=== PATIENT | female | born 1990 | race Caucasian/White ===

== ENCOUNTER → 2016-12-05 | Outpatient (CLI) | payer OTHER | LOC: FIMAGING 13:33 | PROVIDERS: ATTEND Nurse Practitioner | DX: N60.01 Solitary cyst of right breast (principal); N60.02 Solitary cyst of left breast; Z85.3 Personal history of malignant neoplasm of breast; Z90.13 Acquired absence of bilateral breasts and nipples ==

== ENCOUNTER 2017-03-07 01:48 | Emergency (ER) | payer OTHER ==
--- NOTE | 2017-03-07 02:07 | EDPHY ---
H & P Time Seen by Provider: 03/07/17 01:56 HPI/ROS: Chief Complaint: Chest pain HPI: 26-year-old woman past medical history breast cancer in the past now in remission woke 45 minutes ago with central chest pain radiating to her back. It is worse lying down. Does hurt a bit to breathe. At worst pain is an 8/10. When at a 610. Does not have a history of the same. No shortness of breath. Patient was treated for breast cancer in January of 2015. She had a bilateral mastectomy. Is currently on tamoxifen. No recent travel. No leg pain or swelling. No nausea or vomiting. No family history of blood clots in the past. She does not smoke. She is not on hormone replacement. ROS: 10 point Review of Systems is negative except as noted in the HPI. PMH: Breast cancer in 2014 Medications: Tamoxifen, Effexor, vitamin-D Allergies: No known drug allergies Social History: No smoking, occasional alcohol, no recreational drug use Family History: Breast cancer, hypertension, diabetes Physical Exam: Gen: Awake, Alert, No Distress HEENT: Nose: no rhinorrhea Eyes: PERRLA, EOMI Mouth: Moist mucosa Neck: Supple, no JVD Chest: She has mild parasternal tenderness reproducing presenting complaint, lungs clear to auscultation Heart: S1, S2 normal, no murmur Abd: Soft, non-tender, no guarding Back: no CVA tenderness, no midline tenderness Ext: no edema, non-tender Skin: no rash Neuro: CN II-XII intact, Sensation grossly intact, Strength 5/5 in bilateral upper and lower extremities Constitutional: Initial Vital Signs Temperature (C) 36.6 C 03/07/17 01:55 Heart Rate 87 03/07/17 01:55 Respiratory Rate 18 03/07/17 01:55 Blood Pressure 118/74 03/07/17 01:55 O2 Sat (%) 98 03/07/17 01:55 O2 Delivery Mode Room Air Allergies/Adverse Reactions: No Known Allergies Allergy (Unverified 03/07/17 01:54) Home Medications: Medication Instructions Recorded Effexor 03/07/17 Tamoxifen Citrate 03/07/17 Medical Decision Making - Diagnostics EKG Interpretation: ECG time 4:02 a.m. sinus rhythm with a rate of 69, normal axis, normal intervals , no acute ST or T-wave changes. Impression: Normal ECG ED Course/Re-evaluation: 26-year-old boy history of breast cancer now in remission with chest pain. ECG is normal. Chest x-ray is negative. D-dimer is normal. Troponin is undetectable. Patient has some relief with a GI cocktail pain return. No significant relief with Protonix. She does have some mildly reproducible pain at the this is likely chest wall in nature. Patient's pain is down to a 4/10 after Toradol. Chest some nausea. Will give Zofran for this. She has no risk factors for heart disease or PE. Her D-dimer is negative. No evidence of active cancer at this time. Will discharge with follow-up with primary care physician - Data Points Laboratory Results: Laboratory Results 03/07/17 02:35 03/07/17 02:35 03/07/17 03/07/17 03/07/17 02:35 02:35 02:35 WBC 9.99 10^3/uL H 10^3/uL (3.80-9.50) RBC 4.16 10^6/uL L 10^6/uL (4.18-5.33) Hgb 12.5 g/dL L g/dL (12.6-16.3) Hct 36.8 % L % (38.0-47.0) MCV 88.5 fL fL (81.5-99.8) MCH 30.0 pg pg (27.9-34.1) MCHC 34.0 g/dL g/dL (32.4-36.7) RDW 12.0 % % (11.5-15.2) Plt Count 309 10^3/uL 10^3/uL (150-400) MPV 9.8 fL fL (8.7-11.7) Neut % (Auto) 56.2 % % (39.3-74.2) Lymph % (Auto) 34.2 % % (15.0-45.0) Bowie % (Auto) 6.8 % % (4.5-13.0) Eos % (Auto) 1.9 % % (0.6-7.6) Baso % (Auto) 0.4 % % (0.3-1.7) Nucleat RBC Rel Count 0.0 % % (0.0-0.2) Absolute Neuts (auto) 5.61 10^3/uL 10^3/uL (1.70-6.50) Absolute Lymphs (auto) 3.42 10^3/uL H 10^3/uL (1.00-3.00) Absolute Monos (auto) 0.68 10^3/uL 10^3/uL (0.30-0.80) Absolute Eos (auto) 0.19 10^3/uL 10^3/uL (0.03-0.40) Absolute Basos (auto) 0.04 10^3/uL 10^3/uL (0.02-0.10) Absolute Nucleated RBC 0.00 10^3/uL 10^3/uL (0-0.01) Immature Gran % 0.5 % % (0.0-1.1) Immature Gran # 0.05 10^3/uL 10^3/uL (0.00-0.10) D-Dimer 0.33 ug/mLFEU ug/mLFEU (0.00-0.50) Sodium 138 mEq/L mEq/L (134-144) Potassium 4.0 mEq/L mEq/L (3.5-5.2) Chloride 103 mEq/L mEq/L (97-110) Carbon Dioxide 22 mEq/l mEq/l (22-31) Anion Gap 13 mEq/L mEq/L (8-16) BUN 12 mg/dL mg/dL (7-23) Creatinine 0.6 mg/dL mg/dL (0.6-1.0) Estimated GFR > 60 Glucose 94 mg/dL mg/dL (70-100) Calcium 9.6 mg/dL mg/dL (8.5-10.4) Troponin I < 0.012 ng/mL ng/mL (0-0.034) Lipase 210.0 IU/L IU/L (23-300) Medications Given: Discontinued Medications Al Hydroxide/Mg Hydroxide (Maalox Susp) 30 ml PO ONCE ONE Stop: 03/07/17 02:09 Last Admin: 03/07/17 02:29 Dose: 30 ml Ketorolac Tromethamine (Toradol) 15 mg IVP EDNOW ONE Stop: 03/07/17 05:13 Last Admin: 03/07/17 05:15 Dose: 15 mg Lidocaine (Lidocaine 2% Viscous) 15 ml PO ONCE ONE Stop: 03/07/17 02:09 Last Admin: 03/07/17 02:29 Dose: 15 ml Morphine Sulfate (Morphine) 4 mg IVP ONCE ONE Stop: 03/07/17 04:01 Last Admin: 03/07/17 04:07 Dose: 4 mg Pantoprazole Sodium (Protonix) 40 mg IVP EDNOW ONE Stop: 03/07/17 04:05 Last Admin: 03/07/17 04:07 Dose: 40 mg Departure - Departure Disposition: Home, Routine, Self-Care Clinical Impression: Chest pain Condition: Good Instructions: Hydrocodone/Acetaminophen (By mouth), Ondansetron (By mouth), Chest Pain (ED) Additional Instructions: Return to the emergency depart for increasing chest pain, shortness of breath, fevers, chills, productive cough, or any other concerns. Follow up with primary care physician in 2-3 days for re-evaluation. Referrals: Eri Al MD [Medical Doctor] - As per Instructions
[2017-03-07] MEDS ORDERED: MAG HYDROX/AL HYDROX/SIMETH 30 ML UDCUP PO ONE (02:08)
[2017-03-07] MEDS ORDERED: LIDOCAINE 2% VISCOUS 15 ML UDCUP PO ONE (02:08)
[2017-03-07 02:44] LABS: % IMMATURE GRANULYOCYTES 0.5 % (0.0-1.1); ABSOLUTE IMMATURE GRANULOCYTES 0.05 10^3/uL (0.00-0.10); ADD DIFF? NO; ADD MORPH? NO; ADD SCAN? NO; ATYPICAL LYMPHOCYTE FLAG 0 (0-99); FRAGMENT RBC FLAG 0 (0-99); HEMATOCRIT 36.8 % (38.0-47.0); HEMOGLOBIN 12.5 g/dL (12.6-16.3); LEFT SHIFT FLG 0 (0-99); LIPEMIA HEMOLYSIS FLAG 90 (0-99); MEAN CELL VOLUME 88.5 fL (81.5-99.8); MEAN PLATELET VOLUME 9.8 fL (8.7-11.7); PLATELET CLUMPS FLAG 0 (0-99); PLATELET COUNT 309 10^3/uL (150-400); RED BLOOD CELL COUNT 4.16 10^6/uL (4.18-5.33)
[2017-03-07 02:53] LABS: ANION GAP 13 mEq/L (8-16); CALCIUM 9.6 mg/dL (8.5-10.4); CARBON DIOXIDE 22 mEq/l (22-31); CHLORIDE 103 mEq/L (97-110); CREATININE 0.6 mg/dL (0.6-1.0); GLOMERULAR FILTRATION RATE > 60; GLUCOSE 94 mg/dL (70-100); SODIUM 138 mEq/L (134-144)
[2017-03-07 03:04] LABS: TROPONIN I < 0.012 ng/mL (0-0.034)
[2017-03-07] MEDS ORDERED: PANTOPRAZOLE SODIUM 40 MG in NS 100 ML IV ONE (03:59)
[2017-03-07] MEDS ORDERED: PANTOPRAZOLE SODIUM 40 MG VIAL IVP ONE (04:04)
[2017-03-07 04:37] VITALS: O2SAT 96
--- NOTE | 2017-03-07 04:46 | CPEKG ---
Heart Rate: 69 RR Interval: 870 P-R Interval: 164 QRSD Interval: 96 QT Interval: 396 QTC Interval: 425 P Tijer[place]: 45 QRS [place]ijer[place]: 13 T Wave [place]: 26 EKG Severity - NORMAL ECG - EKG Impression: SINUS RHYTHM Electronically Signed By: Festus Vickers 07-Mar-2017 07:06:44
[2017-03-07] MEDS ORDERED: KETOROLAC 15 MG/1 ML SDV IVP ONE (05:12)
[2017-03-07] MEDS ORDERED: ONDANSETRON 4 MG/2 ML VIAL IVP ONE (05:59)
[2017-03-07] MEDS ORDERED: HYDROCOD/APAP 5/325 PREPACK#6 BTL TAKEHOME ONE (06:17)
[2017-03-07] MEDS ORDERED: ONDANSETRON 4MG PREPACK#2 BTL TAKEHOME ONE (06:17)
[2017-03-07 06:41] VITALS: BP 119/81; PULSE 74; RESP 16; TEMP 97.9
== END 2017-03-07 06:41 | disposition home or self-care (01) ==
DX: R07.9 Chest pain, unspecified (principal); Z85.3 Personal history of malignant neoplasm of breast
CPT/HCPCS: 96374; J1885; J2405

== ENCOUNTER 2018-11-02 20:27 | Emergency (ER) | payer OTHER ==
--- NOTE | 2018-11-02 20:48 | EDPHY ---
General Time Seen by Provider: 11/02/18 20:48 Narrative: CLINICAL IMPRESSION: Large Right complex ovarian cyst ASSESSMENT/PLAN: Patient is a 28 year old female who presents who presents with complaint of pelvic pain, sent for evaluation of possible IUD displacement status post endometrial biopsy. Patient is afebrile and nontoxic appearing, she is in no acute distress. Her abdomen is soft, no peritoneal signs on initial or re- examination; tender in the very low generalized abdomen R>L. Her vital signs were reviewed, no findings to suggest sepsis or serious bacterial illness. CBC , BMP, UA grossly normal. negative, rules out ectopic. Pelvic US with 8x5x6.2 cm right adnexal cyst with no associated vascularity. US otherwise with no solid adnexal masses, no significant intraperitoneal fluid and normal blood flow to both ovaries. No evidence of IUD malposition. I suspect her pain is related to size of cyst. There was no evidence of torsion or ectopic. She just had her annual exam with negative STI workup, no findings to suggest TOA or PID. She was given toradol with improvement of her symptoms. On repeat exam she is well appearing, her abdomen is soft with mild RLQ tenderness to palpation. I have a very low suspicion for other etiologies to include appendicitis, ischemic bowel, bowel perforation, UTI or any other life threatening disease. I have discussed with the patient the possibility of CT scanning to evaluate for other potential causes of the abdominal pain, but the patient currently refuses and opts for an out patient trial and re-evaluation. She is well established with her ObGyn and will call tomorrow to schedule an appointment for repeat examination. She understands that a repeat US is recommended 6-8 weeks. Conservative return precautions discussed- she will return for worsening or localizing pain, fever, N/V, vaginal bleeding or for any other concerning symptom. Patient verbalizes understanding and she is in agreement with the plan. DIFFERENTIAL DX: Pelvic pain differential includes but not limited to and in no particular order , ovarian cyst/rupture, TOA, PID, UTI, pyelo, endometriosis, IUD malposition, appendicitis, mass/malignancy ED COURSE: 225: Discussed case with Dr. Archuleta, patient found to have large complex cyst on the right ovary. 225: On repeat examination the patient reports that she is feeling better. I discussed her results with her. Her abdomen was soft with generalized lower abdominal tenderness however most tender in the right lower quadrant. There is no rebound or guarding, no peritoneal signs. I discussed with the patient that her symptoms are likely secondary to her ovarian cyst however could not rule out acute appendicitis with 100% certainty without CT. Patient refuses CT at this time, she will return if symptoms change. CHIEF COMPLAINT: Pelvic Pain HPI: Patient is a 28-year-old female with a significant history of stage II breast cancer status post bilateral mastectomy 2016 presents to the emergency department with pelvic pain. Patient reports she had a uterine biopsy performed last by Shazia Lynn at [facility]. Patient reports mild bleeding that has since resolved. She was doing fairly well up until this morning when she had a sudden onset of severe pelvic pain. She has never experienced anything like this before. She did call her OBGYN, in light of recent uterine biopsy with IUD in place, there is concern for IUD malposition secondary to procedure. She was sent here for further evaluation. Patient reports she was sitting at work, had a sudden onset sharp low pelvic pain that has since been constant. It worsens when she tries to sit. She is having the sensation of increased frequency of urination however denies any dysuria or hematuria. She denies any vaginal bleeding or vaginal pain. She denies any fever, nausea, vomiting or appetite change. She denies any chest pain or shortness of breath. She has had no night sweats. She is followed by Dr. Елеан Selby here locally, last follow-up was less than a month ago and was unremarkable. Bowel movements have been regular normal. Patient denies any history of abdominal surgeries or similar episodes in the past. She is sexually active with 1 partner, denies any possibility of being . She denies any concern of sexually transmitted infection. PMH: Stage II breast cancer Pertinent Past Surgical History: Bilateral mastectomy Social History: Denies illicit drug use or cigarette smoking REVIEW OF SYSTEMS: All other systems negative Constitutional: No fever, no chills, appetite change. Eyes: No discharge, vision change. ENT: No sore throat, congestion, ear pain. Cardiovascular: No chest pain, no palpitations. Respiratory: No cough, no shortness of breath. Gastrointestinal: No abdominal pain, no vomiting, diarrhea. Genitourinary: Pelvic pain. No hematuria, dysuria, flank pain. Musculoskeletal: No back pain, joint swelling, joint pain, myalgias. Skin: No rashes, color change. Neurological: No headache, dizziness, weakness. PHYSICAL EXAM: General Appearance: Alert, well appearing and no distress. HENT: Normocephalic, atraumatic. Bilateral external ears are normal. Bilateral tympanic membranes are normal with pearly knutson reflex. Nares are clear, mucosa is pink. Oropharynx is clear, uvula is midline. There is no tonsillar enlargement or exudate. Eyes: PERRLA, EOMI. Conjunctiva pink, no pallor or injection. Neck: Supple, nontender, no lymphadenopathy, no midline pain, FROM. Respiratory: There are no retractions, lungs are clear to auscultation. Cardiac: Regular rate and rhythm, no murmurs or gallops. Gastrointestinal: Abdomen is soft, bowel sounds normal, no masses/hernia. She is tender with generalized lower abdomen R>L with no rigidity, guarding or focal peritoneal findings. Neurological: Alert and oriented x 3, CN 2-12 grossly intact, normal gait no ataxia, DTR's intact, normal sensation and strength. Skin: Warm, dry, no rashes, no nodules on palpation. Musculoskeletal: Extremities are symmetrical, full range of motion, no tenderness, deformity, swelling, or erythema. Psychiatric: Patient is oriented X 3, there is no agitation. MEDICAL DECISION MAKING: Patient was seen independently. Secondary supervising physician at time of evaluation was Dr. Vickers, he did not evaluate this patient however we discussed results and plan of care. Diagnosis: Large, right complex ovarian cyst. New, requires workup Summary: See Assessment and Plan for summary of ED visit Clinical lab tests: ordered / reviewed. Independent visualization of images, tracing, or specimens: Yes. Decision to obtain medical records or history from someone other than the patient: No Review / Summarize previous medical records: Yes Discussed patient with another provider: Yes, Dr. Vickers Patient Progress: Stable, discharge. - History Smoking Status: Never smoked - Objective Vital Signs: Initial Vital Signs Temperature (C) 36.6 C 11/02/18 20:29 Heart Rate 82 11/02/18 20:29 Respiratory Rate 16 11/02/18 20:29 Blood Pressure 142/102 H 11/02/18 20:29 O2 Sat (%) 96 11/02/18 20:29 O2 Delivery Mode Room Air Allergies/Adverse Reactions: No Known Allergies Allergy (Verified 11/02/18 20:32) Home Medications: Medication Instructions Recorded Effexor 03/07/17 Tamoxifen Citrate 03/07/17 Prilosec 11/02/18 Laboratory Results: Laboratory Results 11/02/18 20:14 11/02/18 20:14 Medications Given: Discontinued Medications Ketorolac Tromethamine (Toradol) 30 mg IVP EDNOW ONE Stop: 11/02/18 23:00 Last Admin: 11/02/18 23:08 Dose: 30 mg Departure - Departure Disposition: Home, Routine, Self-Care Clinical Impression: Abdominal pain, Ovarian cyst Condition: Good Instructions: Ovarian Cyst (ED), Pelvic Pain in Women (ED) Additional Instructions: DISCHARGE INSTRUCTIONS FROM YOUR DOCTOR Thank you for visiting our emergency department today. Please keep in mind that discharge from the emergency department does not mean that there is nothing wrong - it simply means that we have not identified an emergency condition that requires further evaluation or treatment in the hospital. Please call to schedule a follow-up appointment with your OBGYN 1st thing tomorrow morning. You were found to have a complex ovarian cyst on the right side, recommendations are for repeat ultrasound in 6-8 weeks. Your IUD was found to be in good position, your endometrium noted to be unremarkable. For pain control: You may take Tylenol, I recommend 500-1000 mg every 6-8 hours as needed. Take with food and a full glass of water. Stop taking if this is upsetting her stomach. Do not exceed 4000 mg in a 24 hr period. You may also take ibuprofen, recommend 400 mg every 6 hr. Take with food and a full glass of water. Stop taking if this upsets her stomach. Do not exceed 2400 mg in a 24 hr period. Do not take for at least 8 hr as he received Toradol in the emergency department. People present with illnesses and injuries in different ways, and it is always possible that we have missed something. You may always return for re-evaluation if symptoms worsen or if they are not improving or if you develop new/different symptoms. Again, thank you for choosing our emergency department. We hope that you feel better. Referrals: Mandy Enriquez MD [Medical Doctor] - As per Instructions (This is a referral for a primary care physician if you need 1. )
[2018-11-02 21:27] LABS: PLATELET COUNT 371 10^3/uL (150-400)
[2018-11-02] MEDS ORDERED: KETOROLAC 30 MG/1 ML SDV IVP ONE (22:59)
[2018-11-02 23:15] VITALS: BP 142/95
== END 2018-11-02 23:50 | disposition home or self-care (01) ==
DX: N83.201 Unspecified ovarian cyst, right side (principal); R10.2 Pelvic and perineal pain; Z85.3 Personal history of malignant neoplasm of breast; Z90.13 Acquired absence of bilateral breasts and nipples
CPT/HCPCS: 96374; J1885